=== PATIENT | male | born 1950 | race Caucasian/White ===

== ENCOUNTER 2020-08-28 11:43 | Inpatient (IN) | payer OTHER, SELFPAY ==
[~2020-08-28] VITALS: Ht 182.9 cm; Wt 81.6 kg
[2020-08-28 11:55] VITALS: Ht 182.9 cm; Wt 81.6 kg
--- NOTE | 2020-08-28 12:34 | NUR ---
MD OVALLE AT CHAIR SIDE WITH MSE
--- NOTE | 2020-08-28 13:00 | NUR ---
PT OUT TO XRAY WITH TECH, NO SOB, NO DISTRESS
--- NOTE | 2020-08-28 13:05 | NUR ---
PT REWTURNED FROM XRAY, NO SOB, NO DISTRESS
--- NOTE | 2020-08-28 14:55 | NUR ---
PT PLACED IN BED 14. PT PLACED ON MONTIOR. RT AT BEDSIDE FOR ABG. IV STARTED. SWABBED FOR COVID
[2020-08-28 15:10] LABS: CALCIUM 9.7 mg/dL (8.5-10.1); CARBON DIOXIDE 27.5 mmol/L (21-32); CHLORIDE SERUM 94 mmol/L (98-107); CREATININE SERUM 2.2 mg/dL (0.7-1.3); GLUCOSE SERUM 118 mg/dL (74-106); POTASSIUM SERUM 4.2 mmol/L (3.5-5.1); SODIUM SERUM 131 mmol/L (136-145)
[2020-08-28 15:16] LABS: ALBUMIN 3.7 g/dL (3.4-5.0); ALKALINE PHOSPHATASE 57 U/L (46-116); ALT/SGPT 27 U/L (16-63); AST/SGOT 36 U/L (15-37); BILIRUBIN TOTAL 0.8 mg/dL (0.20-1.00); LACTIC DEHYDROGENASE (LDH) 310 U/L (100-190); TOTAL PROTEIN, SERUM 8.1 g/dL (6.4-8.2)
[2020-08-28 15:18] LABS: BASOPHIL % 0.2 % (0.2-1.5); PLATELET COUNT 203 x10^3mcL (152-348); RED CELL DISTRIBUTION WIDTH 13.9 % (12.1-16.2)
[2020-08-28 15:26] LABS: C REACTIVE PROTEIN 12.8 mg/dL (<=0.9)
--- NOTE | 2020-08-28 16:33 | NUR ---
DR GARCIA SPEAKING TO PT'S SON REGARDING PT'S POC.
--- NOTE | 2020-08-28 16:55 | NUR ---
AFTER SPEAKING TO SON, PT AGREED TO STAY FOR ADMISSION. PT CHANGED INTO GOWN, AND PLACED ON THE CM.
--- NOTE | 2020-08-28 18:24 | NUR ---
PT RESTING. DOES NOT WANT TO KEEP ON EKG LEADS. NO NEEDS
--- NOTE | 2020-08-28 19:09 | NUR ---
REPORT TO KAREY DHILLON TO ASSUME CARE
--- NOTE | 2020-08-28 19:50 | NUR ---
PT SITTING AT EDGE OF GURNEY IN A POSITION OF COMFORT. PT DENIES ANY PAIN AT THIS TIME. PT MEDICATION HAS FINISHED INFUSING AT THIS TIME. PT AAO X4 RESPIRATIONS E/U NO DISTRESS NOTED.
[2020-08-28] MEDS ORDERED: ATORVASTATIN CA10 M1 (22:50)
[2020-08-28] MEDS ORDERED: ASPIR 8181 MG PO (22:51)
--- NOTE | 2020-08-28 23:04 | NUR ---
REPORT GIVEN TO CLAU DHILLON TO ASSUME PRIMARY CARE OF PT.
[2020-08-29 00:17] VITALS: BP 152/69
[2020-08-29 06:15] VITALS: BP 156/87
[2020-08-29 07:45] LABS: BASOPHIL % 0.2 % (0.2-1.5); RED CELL DISTRIBUTION WIDTH 13.7 % (12.1-16.2)
--- NOTE | 2020-08-29 07:57 | NUR ---
RECEIVED PT. SITTING UP IN BED FULLY DRESSED WITH STREET CLOTHING ON. ALLOWED A LIMITED ASSESSMENT. APPEARS A LITTLE ANXIOUS ABLOUT HOSPITALIZATION, BUT WOULD NOT DISCUSS ANY CONCERNS AT THIS TIME, ONLY STATED THAT HE WAS DOING WELL. ON RA WITH 02 SAT AT 95%. DENIED ANY PAIN OR PROBLEMS. IN STABLE CONDITION AT THIS TIME.
[2020-08-29 08:33] VITALS: BP 155/83
[2020-08-29 09:01] LABS: PLATELET COUNT 221 x10^3mcL (152-348)
[2020-08-29 12:31] VITALS: BP 171/87
--- NOTE | 2020-08-29 13:40 | NUR ---
RECEIVED T/O FROM DR. SEYMOUR, NIFEDIPIN 30MG ER PO DAILY, FIRST DOSE NOW. ORDER CARRIED OUT. PT MADE AWARE.
[2020-08-29] MEDS ORDERED: ADA30 PO (16:22)
[2020-08-29] MEDS ORDERED: ELIQUIS2.5 MG PO (16:23)
[2020-08-29] MEDS ORDERED: DECADRON4 MG PO (16:25)
[2020-08-29 16:48] LABS: ALKALINE PHOSPHATASE 55 U/L (46-116); ALT/SGPT 25 U/L (16-63); AST/SGOT 35 U/L (15-37); BILIRUBIN TOTAL 0.5 mg/dL (0.20-1.00); CALCIUM 9.1 mg/dL (8.5-10.1); CARBON DIOXIDE 26.4 mmol/L (21-32); CHLORIDE SERUM 98 mmol/L (98-107); CHOLESTEROL 142 mg/dL (<200); CHOLESTEROL/HDL RATIO 3.6; CREATININE SERUM 1.8 mg/dL (0.7-1.3); GLUCOSE SERUM 143 mg/dL (74-106); HDL CHOLESTEROL 40 mg/dL (40-60); MAGNESIUM 2.7 mg/dL (1.8-2.4); PHOSPHOROUS 3.9 mg/dL (2.5-4.9); POTASSIUM SERUM 5.2 mmol/L (3.5-5.1); SODIUM SERUM 137 mmol/L (136-145); TOTAL PROTEIN, SERUM 7.7 g/dL (6.4-8.2); TRIGLYCERIDES 93 mg/dL (<150)
[2020-08-29 17:19] VITALS: BP 146/75; BP 171/87
[2020-08-29 18:09] LABS: ALBUMIN 3.3 g/dL (3.4-5.0)
--- NOTE | 2020-08-29 18:35 | NUR ---
PT. RECEIVED DISCHARGE INSTRUCTIONS, ALSO COMMUNICATED WITH THE PT. BUDDY SALCEDO JR PER THE PT. REQUEST ON COVID ISOLATION PRECAUTIONS, PRESCRIPTION AND MAKING SURE THAT HE TAKES HIS MEDICATIONS PRESCRIBED. IV REMOVED. LEFT WITH ALL PROPERTY IN STABLE CONDITION.
== END 2020-08-29 18:32 | disposition home or self-care (01) | DRG 177 ==
LOC: EDBD 11:43 → ED 11:43 → MU 15:57 → DU 15:57 → MU 15:57
PROVIDERS: Student in an Organized Health Care Education/Training Program; ADMIT Hospitalist; ATTEND Internal Medicine Infectious Disease
DX: U07.1 COVID-19 (principal); J12.89 Other viral pneumonia; J96.01 Acute respiratory failure with hypoxia; N17.9 Acute kidney failure, unspecified; E87.1 Hypo-osmolality and hyponatremia; I10 Essential (primary) hypertension; E78.5 Hyperlipidemia, unspecified; Z87.891 Personal history of nicotine dependence; E03.9 Hypothyroidism, unspecified
CPT/HCPCS: 36600; 83880; 85378; C9113; G0378; J0456; J0696; J1100; J1650; J7050; J7060; U0003